=== PATIENT | male | born 1970 ===

== ENCOUNTER 2016-04-26 13:24 | Emergency (ER) | payer MEDICAID, OTHER ==
[2016-04-26 13:44] VITALS: BP 142/83; PULSE 99; RESP 18; TEMP 97.5
[2016-04-26] MEDS ORDERED: LIDOCAINE HCL 2% (VISCOUS) 20 ML SOL MT ONE (13:59)
[2016-04-26] MEDS ORDERED: LIDOCAINE HCL 2% (VISCOUS) 20 ML SOL ONE (14:01)
[2016-04-26 14:08] VITALS: O2SAT 100
== END 2016-04-26 14:13 | disposition home or self-care (01) | DRG 159 ==
LOC: ED 13:24
DX: K08.89 Other specified disorders of teeth and supporting structures (principal)
CPT/HCPCS: 99282

== ENCOUNTER 2016-05-06 07:15 | Day surgery (SDC) | payer OTHER ==
[2016-05-06] MEDS ORDERED: BUPIVACAINE/EPI 0.5% 10 ML SOL INFIL ONE ×2 (07:49→08:10)
[2016-05-06] MEDS ORDERED: LIDOCAINE HCL 1% MPF SOL ONE ×2 (07:49→08:01)
[2016-05-06] MEDS ORDERED: FENTANYL CITRATE 50 MCG/ML SOL ONE (08:07)
[2016-05-06] MEDS ORDERED: PROPOFOL 500 MG/50 ML EMU IV ONE (08:07)
[2016-05-06] MEDS ORDERED: ONDANSETRON HCL 4 MG/2 ML SOL ONE (08:14)
[2016-05-06 08:59] VITALS: PULSE 87
[2016-05-06 09:16] VITALS: BP 100/65; RESP 20; TEMP 97.5; O2SAT 95
== END 2016-05-06 09:35 | disposition home or self-care (01) | DRG 395 ==
LOC: SURG 07:15
PROVIDERS: ATTEND Surgery
DX: K61.1 Rectal abscess (principal)
CPT/HCPCS: 87070; 87075; 87077; 87186; J2405; J3010; A6402; J2001; J2704